=== PATIENT | male | born 1940 | race Caucasian/White ===

== ENCOUNTER 2024-05-12 23:33 | Day surgery (SDC) | payer MEDICARE, BC ==
[~2024-05-12] VITALS: Ht 177.8 cm; Wt 82.8 kg
[2024-05-13] MEDS: GLUCAGON INJ 1MG VIAL IV STA (00:21)
[2024-05-13 00:41] LABS: BASO # 0.1 10^3/uL (0.0-0.2); BASO % 0.8 % (0.0-1.0); EOS # 0.2 10^3/uL (0.0-0.5); EOS % 1.7 % (0.0-3.0); HEMATOCRIT 43.2 % (42.0-52.0); HEMOGLOBIN 14.7 g/dl (13.5-17.5); LYMPH # 2.1 10^3/uL (1.5-5.0); LYMPH % 20.1 % (24.0-44.0); MEAN CORPUSCULAR HEMOGLOBIN 31.3 pg (27.0-33.0); MEAN CORPUSCULAR VOLUME 91.9 fl (80.0-96.0); MONO # 0.7 10^3/uL (0.0-0.8); MONO % 6.9 % (2.0-8.0); NEUTROPHILS # 7.5 10^3/uL (1.5-8.5); NEUTROPHILS % 69.9 % (36.0-66.0); PLATELET COUNT, AUTOMATED 202 10^3/uL (150-450); WHITE BLOOD COUNT 10.7 10^3/uL (4.0-10.0)
[2024-05-13 00:59] LABS: CALCIUM LEVEL 9.2 MG/DL (8.3-10.6); CREATININE FOR GFR 1.27 MG/DL (0.70-1.30); GLOMERULAR FILTRATION RATE 56.1 (>35); POTASSIUM SERUM 3.9 MMOL/L (3.5-5.1)
[2024-05-13] MEDS ORDERED: propofoL 200 MG/20 ML VIAL As Ordered ONE (02:40)
[2024-05-13] MEDS ORDERED: LIDOCAINE 2% 100MG/5ML SDV (FOR ANES.) As Ordered ONE (02:40)
[2024-05-13 02:54] VITALS: TEMP 97.1
[2024-05-13] MEDS ORDERED: ONDANSETRON 4MG 2ML VIAL IV PRN (03:00)
[2024-05-13 03:10] VITALS: BP 112/62; O2SAT 95
== END 2024-05-13 02:57 | disposition home or self-care (01) ==
LOC: M ED 23:33 → M SDC 23:34 → M ED 05-13 02:14 → M SDC 05-13 02:57
PROVIDERS: ATTEND Internal Medicine Gastroenterology
DX: T18.128A Food in esophagus causing other injury, initial encounter (principal); Y92.018 Other place in single-family (private) house as the place of occurrence of the external cause; K22.2 Esophageal obstruction; K21.00 Gastro-esophageal reflux disease with esophagitis, without bleeding; K44.9 Diaphragmatic hernia without obstruction or gangrene; R13.10 Dysphagia, unspecified; Z87.891 Personal history of nicotine dependence
CPT/HCPCS: 43239; 43247; 71045; 80048; 85025; 88305; 96374; 99284; J1610